=== PATIENT | female | born 1955 | race Caucasian/White ===

== ENCOUNTER 2018-08-22 10:14 | Emergency (ER) | payer OTHER ==
[~2018-08-22] VITALS: Ht 170.2 cm; Wt 79.4 kg
[2018-08-22 10:19] VITALS: BP_SYST 159
--- NOTE | 2018-08-22 10:26 | NUR ---
Patient to ER bed 2 to gown for evaluation. Side rails up. Report given to Nicol YOUSIF.
--- NOTE | 2018-08-22 10:50 | NUR ---
ER Dr. Lion at bedside examining patient.
--- NOTE | 2018-08-22 10:51 | NUR ---
Patient presented to ER with C/O dizziness. Patient A&Ox4, skin pink, respirations equal bilat, cap refil brisk. Patient states dizziness started this morning when she woke up. Patient denies hx of dizziness, patient presently has nausea, patient given emesis bag. patient denies pain. Patient ambulatory to ER brought in by daughter.
--- NOTE | 2018-08-22 11:00 | NUR ---
Urine specimen collected and analyzed in ER. Results given to ER .
[2018-08-22] MEDS ORDERED: MECLIZINE HCL 25 MG TABLET (ANITVERT) PO ONE (11:15)
[2018-08-22] MEDS ORDERED: ONDANSETRON 4 MG ODT TAB PO ONE (11:15)
[2018-08-22 12:10] VITALS: BP_SYST 148
--- NOTE | 2018-08-22 12:10 | NUR ---
Patient given written and verbal discharge instructions and verbalizes understanding. ER MD discussed with patient the results and treatment provided. Patient in stable condition. ID arm band removed. Rx of given. Patient educated on pain management and to follow up with PMD. Pain Scale0/10 . Opportunity for questions provided and answered. Medication side effect fact sheet provided.
== END 2018-08-22 12:10 | disposition home or self-care (01) ==
LOC: SED 10:14
DX: H81.10 Benign paroxysmal vertigo, unspecified ear (principal); R11.2 Nausea with vomiting, unspecified; R03.0 Elevated blood-pressure reading, without diagnosis of hypertension; Z88.8 Allergy status to other drugs, medicaments and biological substances
CPT/HCPCS: 81002; 99283; J8597; Q0162

== ENCOUNTER 2020-12-01 09:10 | Day surgery (SDC) | payer OTHER, SELFPAY ==
[~2020-12-01] VITALS: Ht 170.2 cm; Wt 83.9 kg
[2020-12-01] MEDS ORDERED: ACETAMINOPHEN I.V. 1000 MG 100 ML IV ONE (10:48)
[2020-12-01] MEDS ORDERED: MEPERIDINE HCL/PF 25 MG/ML DISP.SYRIN IVP PRN (11:30)
[2020-12-01] MEDS ORDERED: LABETALOL 100 MG/ 20ML VIAL IVP PRN (11:30)
[2020-12-01] MEDS ORDERED: METOCLOPRAMIDE HCL 10 MG/2 ML VIAL IVP PRN (11:30)
[2020-12-01] MEDS ORDERED: HYDROmorphone 1 MG/ML INJ. CARTRIDGE IVP PRN ×2 (11:30)
[2020-12-01] MEDS ORDERED: MIDAZOLAM HCL 2 MG/2 ML VIAL (VERSED) IVP PRN (11:30)
[2020-12-01] MEDS ORDERED: hydrALAZINE HCL 20 MG/ML VIAL IVP PRN (11:30)
[2020-12-01] MEDS ORDERED: LR 1,000 ML IV SCH (11:30)
[2020-12-01] MEDS ORDERED: MIDAZOLAM HCL 5 MG/ML VIAL (VERSED) IV ONE (13:00)
[2020-12-01] MEDS ORDERED: EPINEPHrine 1 MG/ML VIAL ONE (13:00)
[2020-12-01] MEDS ORDERED: HYDROmorphone 2 MG/ML VIAL ONE (13:00)
[2020-12-01] MEDS ORDERED: [UNRECOGNIZED DRUG - OTHER] INJ ONE (13:00)
[2020-12-01] MEDS ORDERED: WATER FOR IRRIGATION,STERILE 1,000 ML IRRIG.SOLN IR ONE (13:00)
[2020-12-01] MEDS ORDERED: DEXAMETHASONE SOD PHOSPHATE 4 MG/ML VIAL ONE (13:00)
[2020-12-01] MEDS ORDERED: LR 1,000 ML IV.SOLN IV ONE (13:00)
[2020-12-01] MEDS ORDERED: ONDANSETRON HCL 4 MG/2 ML VIAL ONE (13:00)
[2020-12-01] MEDS ORDERED: LIDOCAINE 2%, 20 ML MDV ONE (13:00)
[2020-12-01] MEDS ORDERED: METOPROLOL TARTRATE 5 MG/5 ML AMPUL IVP ONE (13:00)
[2020-12-01] MEDS ORDERED: NS IRRIG SOLN 1000 ML IR ONE (13:00)
[2020-12-01] MEDS ORDERED: fentaNYL CITRATE 250 MCG/5 ML AMP ONE (13:00)
[2020-12-01] MEDS ORDERED: DESFLURANE 15 MIN GAS INH ONE (13:00)
[2020-12-01] MEDS ORDERED: ROCURONIUM BROMIDE 10 MG/ML (ZEMURON) ONE (13:00)
[2020-12-01 15:27] VITALS: BP_SYST 155
== END 2020-12-01 15:35 | disposition home or self-care (01) ==
LOC: SDS 09:10 → SMU 09:11 → SDS 15:35
PROVIDERS: ATTEND Otolaryngology
DX: J34.89 Other specified disorders of nose and nasal sinuses (principal); D38.5 Neoplasm of uncertain behavior of other respiratory organs; J30.1 Allergic rhinitis due to pollen; I10 Essential (primary) hypertension; G40.909 Epilepsy, unspecified, not intractable, without status epilepticus; E78.00 Pure hypercholesterolemia, unspecified; Z79.899 Other long term (current) drug therapy
CPT/HCPCS: 30140; 31255; 31256; 31298; 36415; 87426; 88305; 88311; C1726; J0131; J0171; J1100; J1170; J2001; J2250; J2405; J3010; J3465; J3490; J7120